=== PATIENT | female | born 1995 | race Caucasian/White ===

== ENCOUNTER 2017-03-31 10:17 | Emergency (ER) | payer SELFPAY ==
[~2017-03-31 10:17] MED LIST: PRO AIR INHALER
[2017-03-31] MEDS ORDERED: MAGNESIUM/ALUMINUM HYDROXIDE/SIMETHICONE 30ML UDC PO STA (11:31)
[2017-03-31] MEDS ORDERED: ONDANSETRON 4MG ODT PO STA (11:31)
[2017-03-31] MEDS ORDERED: LOPERAMIDE HCL 2MG CAPSULE PO ONE (11:45)
[2017-03-31] MEDS ORDERED: KETOROLAC 60MG/2ML VIAL IM ONE (11:45)
[2017-03-31] MEDS ORDERED: FAMOTIDINE 20MG TABLET PO ONE (11:45)
[2017-03-31 11:49] LABS: CLARITY URINE CLEAR (CLEAR); COLOR URINE YELLOW (YELLOW); GLUCOSE URINE NEGATIVE (NEGATIVE); KETONES URINE NEGATIVE (NEGATIVE); LEUKOCYTE ESTERASE URINE 2+ (NEGATIVE); NITRITE URINE NEGATIVE (NEGATIVE); OCCULT BLOOD URINE NEGATIVE (NEGATIVE); PROTEIN URINE NEGATIVE (NEGATIVE); SPECIFIC GRAVITY URINE 1.014 (1.005-1.030); UROBILINOGEN URINE 0.2 E.U./dL (0.2-1.0)
[2017-03-31] MEDS ORDERED: MORPHINE SULFATE 10 MG/ML CPJ IM ONE (13:00)
[2017-03-31 14:09] VITALS: BP 120/74
== END 2017-03-31 14:11 | disposition home or self-care (01) ==
LOC: ER 11:43
DX: G89.29 Other chronic pain (principal); R10.13 Epigastric pain; R19.7 Diarrhea, unspecified; J45.909 Unspecified asthma, uncomplicated
CPT/HCPCS: 81001; 96372; 99284; J1885; Q0162